=== PATIENT | male | born 1980 | race Caucasian/White ===

== ENCOUNTER 2019-03-08 10:41 | Inpatient (IN) | payer OTHER ==
[~2019-03-08] VITALS: Ht 172.7 cm; Wt 81.2 kg
[2019-03-08 10:43] VITALS: BP 142/84
--- NOTE | 2019-03-08 10:51 | NUR ---
BS IN TRIAGE 138
--- NOTE | 2019-03-08 10:55 | NUR ---
PT AMBULATED TO BED 10
--- NOTE | 2019-03-08 10:58 | NUR ---
PATIENT PRESENTS TO ED WITH C/OF LOW BLOOD SUGAR AND LEFT HAND PAIN. PT STATES HE WAS AT [facility] YESTERDAY. PT STATES HE GOT GLASS IN HIS LEFT HAND 3 DAYS AGO. LEFGT HAND +CMS, + PULSES BELOW AND ABOVE SITE. LEFT HAND, RED/SWOLLEN. PT DENIES N/V/D; AAOX4 WITH EVEN AND STEADY GAIT; LUNGS CLEAR BL; HR EVEN AND REGULAR; PATIENT STATES PAIN OF 8/10 AT THIS TIME; VSS; PATIENT POSITIONED FOR COMFORT; HOB ELEVATED; BEDRAILS UP X2; BED DOWN. PENDING ER MD EVALUATION.
[2019-03-08] MEDS ORDERED: INSU100I7 SQ (11:05)
[2019-03-08] MEDS ORDERED: LISI-420 PO (11:05)
[2019-03-08] MEDS ORDERED: AMLO5TAB PO (11:05)
[2019-03-08] MEDS ORDERED: SLIDE SUBQ (11:05)
[2019-03-08] MEDS ORDERED: NACL 0.9% 2,000 ML IV SCH (11:21)
[2019-03-08] MEDS ORDERED: PIPERACILLIN/TAZOBACTAM 3.375 GM in DEXT 5% MINI-BAG PLUS 50 ML IV ONE (11:25)
--- NOTE | 2019-03-08 11:25 | NUR ---
PIV STARTED AND LABS DRAWN, PT TOLERATED WELL.
--- NOTE | 2019-03-08 11:30 | NUR ---
XRAY AT BEDSIDE
[2019-03-08] MEDS ORDERED: PIPERACILLIN/TAZOBACTAM 3.375 GM VIAL IV ONE (11:45)
[2019-03-08 12:12] LABS: APPEARANCE,URINE CLEAR (CLEAR); BILIRUBIN,URINE NEGATIVE (NEGATIVE); BLOOD, URINE TRACE-I (NEGATIVE); COLOR,URINE YELLOW (YELLOW); LEUKOCYTE ESTERASE ,URINE NEGATIVE (NEGATIVE); NITRITE, URINE NEGATIVE (NEGATIVE); UGLUCOSE 1+ (NEGATIVE)
[2019-03-08 12:23] LABS: BASOPHILS % (AUTO) 0.3 % (0.0-2.0); EOSINOPHILS % (AUTO) 0.2 % (0.0-4.0); HEMATOCRIT 44.2 % (36-52); HEMOGLOBIN 14.9 g/dL (12.0-18.0); LYMPHOCYTES # (AUTO) 1.2 K/uL (2.0-11.5); LYMPHOCYTES % (AUTO) 8.3 % (20.5-51.1); MEAN CORPUSCULAR HEMOGLOBIN 28 pg (27-31); MEAN CORPUSCULAR HGB CONC 34 g/dL (33-37); MEAN CORPUSCULAR VOLUME 83.9 fL (80-94); MONOCYTES # (AUTO) 0.7 K/uL (0.8-1.0); MONOCYTES % (AUTO) 4.7 % (1.7-9.3); NEUTROPHILS # (AUTO) 12.2 K/uL (1.8-7.7); NEUTROPHILS % (AUTO) 86.5 % (42.2-75.2); PLATELET COUNT (AUTO) 323 K/uL (140-450); RED BLOOD CELL COUNT(AUTO) 5.27 MIL/uL (4.20-6.10); RED CELL DISTRIBUTION WIDTH 13.4 % (11.6-13.7); WHITE BLOOD COUNT (AUTO) 14.1 K/uL (4.8-10.8)
[2019-03-08 12:30] LABS: WBC,URINE 0-5 /HPF (0-5)
[2019-03-08 12:44] LABS: ANION GAP 14.7 (8-16); CARBON DIOXIDE 26.5 mmol/L (21-32); CHLORIDE 100 mmol/L (98-107); CREATININE 1.3 mg/dL (0.7-1.3); GFR ARICAN-AMERICAN 79 mL/min (>90); GLUCOSE 138 mg/dL (74-106); POTASSIUM 4.2 mmol/L (3.5-5.1); SODIUM SERUM 137 mmol/L (136-145); UREA NITROGEN, BLOOD 22 mg/dL (7-18)
[2019-03-08 12:56] LABS: ACETONE, SERUM NEGATIVE (NEGATIVE)
[2019-03-08 13:22] LABS: ALBUMIN 4.3 g/dL (3.4-5.0); ASPARTATE AMINOTRANSFERASE 26 U/L (15-37); MAGNESIUM 2.3 mg/dL (1.8-2.4); TOTAL BILIRUBIN 0.7 mg/dL (0.0-1.0)
--- NOTE | 2019-03-08 13:43 | NUR ---
Patient will be admitted to care of [facility]. Admited to Med/Surg. Will go to room 107A. Belongings list completed. Report to STEFANIA.
[2019-03-08] MEDS ORDERED: DEXTROSE 50% 50 ML SYR IVP PRN (13:55)
[2019-03-08 16:00] VITALS: BP 149/69
[2019-03-08] MEDS: HYDROcodone/APAP 5/325 MG 1 TAB TAB PO PRN ×2 (16:26→17:24)
[2019-03-08] MEDS: BLOOD GLUCOSE MONITORING 1 DEV DEV FS SCH ×2 (16:30→21:10)
--- NOTE | 2019-03-08 16:32 | NUR ---
PT STATES PAIN IS FEELING BETTER BUT STILL SORE, BUT AT A TOLERABLE LEVEL NOW AFTER TAKING PAIN MEDICATION
--- NOTE | 2019-03-08 18:30 | NUR ---
PT STATES HAND IS STILL SORE, BUT HE IS DOING BETTER AND IS IN A POSITIVE AFFECT AT THIS TIME SMILING AND CONVERSING PLEASANTLY.
[2019-03-08] MEDS: INSULIN LISPRO SLIDING SCALE 100 UNITS/ML VIAL SUBQ PRN ×2 (18:50→21:12)
--- NOTE | 2019-03-08 18:54 | NUR ---
ADMINISTERED 6 UNITS HUMOLOG, PATIENT IN PLEASANT DEMEANOR AT THIS TIME RESTING COMFORTABLY WITH NO COMPLAINTS AT THIS TIME. NO OBVIOUS SIGNS OF DISTRESS, BREATHING UNLABORED PATIENT SMILING.
--- NOTE | 2019-03-08 19:17 | NUR ---
REPORT GIVEN TO OIL TREATER NURSE AT BEDSIDE. PT IS IN CALM AND RELAXED DEMEANOR AT THIS TIME WITH NO REQUESTS FOR ANY SERVICES AT THIS TIME. DISCUSSED POC WITH PATIENT AT BEDSIDE AND PROVIDED RESOURCES ON FLU AND PNEUMOCOCCAL VACCINE AFTER DISCUSSING IT WITH PATIENT. .
--- NOTE | 2019-03-08 19:18 | NUR ---
RECEIVED BEDSIDE REPORT FROM DAY SHIFT NURSE ANTNOI RN, PT STABLE, NO DISTRESS NOTED, IV TO R AC 18G PATENT, INTACT, SL, PT ON ROOM AIR, NO SOB, PT HAS NO C/O PAIN, INITIAL ASSESSMENT DONE, ALL SAFETY PRECAUTION MET, CALL LIGHT WITHIN REACH, WILL CONTINUE TO MONITOR.
[2019-03-08] MEDS: CLINDAMYCIN PHOS 600MG/D5W PM 50 ML IV SCH (21:10)
--- NOTE | 2019-03-08 21:10 | NUR ---
DUE MEDICATION ADMINISTERED, PT TOLERATED WELL, NO DISTRESS NOTED, CALL LIGHT WITHIN REACH, WILL CONTINUE TO MONITOR.
[2019-03-08] MEDS: INSULIN LANTUS 100 UNITS/ML 10 ML VIAL SUBQ SCH (21:12)
--- NOTE | 2019-03-08 21:40 | NUR ---
PT REQUESTED SLEEPING PILLS. STATED THAT HE COULD NOT SLEEP, TALKED TO DR. PARR REGARDING PT CONCERNS, STATED TO ORDER AMBIEN 10MG, PO PRN INSOMNIA HS, WILL PUT IN ORDERS AND CONTINUE WITH ORDERS.
[2019-03-08] MEDS: ZOLPIDEM 10 MG TAB PO PRN (22:08)
--- NOTE | 2019-03-08 22:08 | NUR ---
SLEEPING MEDICATION ADMINISTERED, PT TOLERATED WELL, NO DISTRESS NOTED, CALL LIGHT WITHIN REACH, WILL CONTINUE TO MONITOR.
[2019-03-09] VITALS: BP 149/90
--- NOTE | 2019-03-09 00:29 | NUR ---
CHECKED ON PT, PT SLEEPING,V/S TAKEN, WITHIN PT BASELINE, CALL LIGHT WITHIN REACH, WILL CONTINUE TO MONITOR. ,
[2019-03-09] MEDS: HYDROcodone/APAP 5/325 MG 1 TAB TAB PO PRN ×3 (04:45→20:47)
[2019-03-09] MEDS: CLINDAMYCIN PHOS 600MG/D5W PM 50 ML IV SCH ×2 (04:46→12:42)
--- NOTE | 2019-03-09 04:47 | NUR ---
PT C/O PAIN, PAIN MEDIATION GIVEN PER DR REDD. PT TOLERATED WELL, NO DISTRESS NOTED, CALL LIGHT WITHIN REACH, WILL CONTINUE TO MONITOR.
[2019-03-09] MEDS: BLOOD GLUCOSE MONITORING 1 DEV DEV FS SCH ×4 (06:43→20:04)
--- NOTE | 2019-03-09 06:43 | NUR ---
CHECKED PT BLOOD SUGAR 75, NO INSULIN COVER NEEDED, PT TOLERATED WELL, CALL LIGHT WITHIN REACH, WILL CONTINUE TO MONITOR.
--- NOTE | 2019-03-09 07:24 | NUR ---
ENDORSED PT TO DAY SHIFT NURSE ALEXANDRU RN, PT STABLE, NO DISTRESS NOTED. CALL LIGHT WITHIN REACH.
--- NOTE | 2019-03-09 07:25 | NUR ---
RECEIVED BEDSIDE REPORT FROM NIGHTSHIFT RN. A/O X4. ROOM AIR. NO SIGNS OF DISTRESS. SKIN INTACT. LEFT HAND CELLULITIS. REDNESS AND EDEMA NOTED. BLUE PEN CHYNA AROUND SITE. IV 18 G R AC SL. CLEAN DRY AND INTACT. PT AMBULATORY, CONTINENT, URINAL AT BEDSIDE. PT ABLE TO MAKE NEEDS KNOWN. WILL CONTINUE TO MONITOR.
[2019-03-09 08:00] VITALS: BP 143/92
--- NOTE | 2019-03-09 08:27 | NUR ---
PATIENT HAS BEEN SCREENED AND CATEGORIZED MODERATE NUTRITION RISK. PATIENT WILL BE SEEN WITHIN 3-5 DAYS OF ADMISSION. 03/11/19IRA [address]
--- NOTE | 2019-03-09 09:23 | NUR ---
Follow appointment with Dr. Royce Jacques on 03/12/19 at 0900. Clinic number address: [address] [place], [place] [id number].
[2019-03-09] MEDS: LISINOPRIL 20 MG TAB PO SCH (09:26)
[2019-03-09] MEDS: amLODIPine 5 MG TAB PO SCH (09:26)
--- NOTE | 2019-03-09 09:28 | NUR ---
ADMINISTERED MEDS. PT TOLERATED WELL. EDUCATED ON SIDE EFFECTS. VERBALIZED UNDERSTANDING.
--- NOTE | 2019-03-09 09:57 | NUR ---
Appointment schedule given to pt with verbal understanding.
[2019-03-09] MEDS: INSULIN LISPRO SLIDING SCALE 100 UNITS/ML VIAL SUBQ PRN (11:29)
--- NOTE | 2019-03-09 11:34 | NUR ---
PT AWAKE LAYING IN BED. NO SIGNS OF DISTRESS. PT GIVEN INSULIN. TOLERATED WELL. BED IN LOWEST POSITION. CALL LIGHT WITHIN REACH. WILL CONTINUE TO MONITOR.
[2019-03-09] MEDS ORDERED: INSULIN LISPRO 100 UNITS/ML VIAL SUBQ SCH ×2 (12:40→18:14)
--- NOTE | 2019-03-09 12:49 | NUR ---
PER PATIENT HE IS HAVING CRANBERRY JUICE AND FRUITS WHICH ARE SWEETS THAT WILL INCREASE HIS SUGARS, HE SAID AT HOME FOR 314 BS HE GETS 15 UNITS HUMALOG, CALLED DR PARR IF IT IS OK TO GIVE 7 MORE UNITS TO GIVE A TOTAL OF 15 UNITS. EDUCATED PATIENT ON MED, GAVE ANTIBIOTICS, EDUCATED ON ANTIBIOTICS. PATIENT VERBALIZED UNDERSTANDING, TOLERATING WELL. WILL CONTINUE TO MONITOR THE PATIENT.
--- NOTE | 2019-03-09 14:00 | NUR ---
PATIENT IS SLEEPING. NO SIGNS OF DISTRESS. WILL CONTINUE TO MONITOR THE PATIENT.
[2019-03-09 16:00] VITALS: BP 139/90
[2019-03-09] MEDS ORDERED: VANCOMYCIN PER PHARMACY MC PRN (16:10)
--- NOTE | 2019-03-09 16:39 | NUR ---
PATIENT CURRENTLY IN CT TO GET CT SCAN ON L HAND WITHOUT CONTRAST PER DR ESQUIVEL ORDER
--- NOTE | 2019-03-09 17:16 | NUR ---
PATIENT BACK IN FROM CT IN STABLE CONDITION. PAGED DR PARR. PATIENTS BS IS 121 BUT HE SAID BEFORE MEALS HE NEEDS [address] WILL ASK [address] PARR IF OK TO GIVE PATIENT REQUESTS
[2019-03-09] MEDS: VANCOMYCIN 1GM/DEXT 5% PREMIX 200 ML IV SCH (18:19)
--- NOTE | 2019-03-09 18:21 | NUR ---
ADMINISTERED 10 UNITS HUMALOG. PATIENT TOLERATED WELL. PER DR FISH IT IS OK TO GIVE LONG THE PATIENT EATS. BS WAS 121 BUT PATIENT STATES BEFORE MEALS HE GETS 10 UNITS EVEN THOUGH BS 121. PATIENT EATING AT THIS TIME. ADMINISTER VANCO, EDUCATED ON SIDE EFFECTS, PATIENT VERBALIZED UNDERSTANDING
--- NOTE | 2019-03-09 19:22 | NUR ---
GAVE BEDSIDE REPORT TO PORTER BATH NURSE. PATIENT ENDORSED IN STABLE CONDITION
--- NOTE | 2019-03-09 19:23 | NUR ---
RECEIVED BEDSIDE REPORT FROM DAY SHIFT NURSE. PT IN STABLE CONDITION. IV SITE ON RAC 18G, INTACT AND PATENT. NO S/S OF SOB OR ANY DISCOMFORT NOTED. BREATHING EVENLY AND UNLABORED. SKIN INTACT, WARM AND DRY TO TOUCH. BED IN LOW POSITION. CALL LIGHT WITHIN REACH.
[2019-03-09] MEDS: INSULIN LANTUS 100 UNITS/ML 10 ML VIAL SUBQ SCH (20:11)
--- NOTE | 2019-03-09 20:11 | NUR ---
LANTUS GIVEN PER DR ORDER, PT REQUESTED USING HIS OWN NEEDLE AND HE WANTED TO ADMINISTER THE MEDICATION HIS OWN, MEDICATION GIVEN, PT SELF ADMINISTER MEDICATION, TOLERATED WELL, NO DISTRESS NOTED, CALL LIGHT WITHIN REACH, WILL CONTINUE TO MONITOR.
--- NOTE | 2019-03-09 20:47 | NUR ---
PT C/O L HAND PAIN 05/23, ADMINISTERED NORCO MD ORDERED. PT TOLERATED WELL. WILL CONTINUE TO MONITOR.
[2019-03-09] MEDS: ZOLPIDEM 10 MG TAB PO PRN (20:56)
--- NOTE | 2019-03-09 20:56 | NUR ---
ADMINISTERED AMBIEN PRN ORDERED. PT TOLERATED WELL.
[2019-03-10] VITALS: BP 115/70
--- NOTE | 2019-03-10 | NUR ---
VITAL SIGN CHECKED. BT 100.7 F NOTED. NOTIFIED AND RECEIVED ORDER OF TYLENOL.
[2019-03-10] MEDS ORDERED: ACETAMINOPHEN 325 MG TAB PO PRN (00:05)
--- NOTE | 2019-03-10 00:28 | NUR ---
ADMINISTERED TYLENOL ORDERED FOR FEVER 100.7 F. PT TOLERATED WELL. WILL CONTINUE TO MONITOR.
--- NOTE | 2019-03-10 02:00 | NUR ---
RECHECKED TEMP AFTER TYLENOL GIVEN. BT 98.4 F NOTED. WILL CONTINUE TO MONITOR.
[2019-03-10] MEDS: VANCOMYCIN 1GM/DEXT 5% PREMIX 200 ML IV SCH ×2 (05:29→17:20)
[2019-03-10] MEDS: HYDROcodone/APAP 5/325 MG 1 TAB TAB PO PRN ×4 (05:32→21:11)
--- NOTE | 2019-03-10 05:32 | NUR ---
PT C/O L HAND PAIN 05/23. GIVEN NORCO ORDERED. PT TOLERATED WELL.
[2019-03-10] MEDS: BLOOD GLUCOSE MONITORING 1 DEV DEV FS SCH ×4 (05:36→21:23)
--- NOTE | 2019-03-10 05:57 | NUR ---
BS CHECKED, 169 NOTED. ACCORDING TO SLIDING SCALE, 2 UNITS OF INSULIN SHOULD BE GIVEN. HOWEVER, PT WANTS TO GET 12 UNITS OF INSULIN. CALLED DR. FISH AND DR REDD 10 UNITS OF INSULIN PLUS BASED ON SLIDING SCALE. WILL GIVE TOTAL 12 UNITS OF INSULIN.
--- NOTE | 2019-03-10 06:25 | NUR ---
RAC 18G IV SITE LEAKING. D/C IV LINE AND STARTED NEW IV LINE 22G ON RFA. FLUSHED WELL AND GOOD BLOOD RETURNED. PATENT AND ASYMPTOMATIC. PT TOLERATED WELL.
--- NOTE | 2019-03-10 06:49 | NUR ---
PER PT REQUEST AND VERIFICATION WITH DR. FISH, 12UNIT INSULIN GIVEN FOR BLOOD SUGAR 169, PT TOLERATED WELL, NO DISTRESS NOTED, CALL LIGHT WITHIN REACH, WILL CONTINUE TO MONITOR.
[2019-03-10] MEDS ORDERED: INSULIN LISPRO 100 UNITS/ML VIAL SUBQ SCH (07:00)
--- NOTE | 2019-03-10 07:18 | NUR ---
RECEIVED BEDSIDE REPORT FROM LOG PROCESSOR OPERATOR NURSE. PT IN STABLE CONDITION. IV SITE ON R FA 22G SL, INTACT AND PATENT. NO S/S OF SOB OR ANY DISCOMFORT NOTED. BREATHING EVEN AND UNLABORED. LEFT HAND CELLULITIS, SKIN WARM AND DRY TO TOUCH. BED IN LOW POSITION. CALL LIGHT WITHIN REACH. WILL MONITOR PT CLOSELY.
--- NOTE | 2019-03-10 07:25 | NUR ---
ENDORSED PT TO DAY SHIFT NURSE NICOLAS PT IN STABLE CONDITION NO DISTRESS NOTED, CALL LIGHT WITHIN REACH.
[2019-03-10 08:00] VITALS: BP 156/88
[2019-03-10 08:03] LABS: BASOPHILS # (AUTO) 0.1 K/uL (0.00-0.22); BASOPHILS % (AUTO) 0.5 % (0.0-2.0); EOSINOPHILS # (AUTO) 0.1 K/uL (0-0.4); EOSINOPHILS % (AUTO) 0.6 % (0.0-4.0); HEMOGLOBIN 13.8 g/dL (12.0-18.0); LYMPHOCYTES # (AUTO) 2.6 K/uL (2.0-11.5); LYMPHOCYTES % (AUTO) 19.2 % (20.5-51.1); MEAN CORPUSCULAR HEMOGLOBIN 29 pg (27-31); MEAN CORPUSCULAR HGB CONC 35 g/dL (33-37); MEAN CORPUSCULAR VOLUME 82.7 fL (80-94); MONOCYTES # (AUTO) 1.2 K/uL (0.8-1.0); MONOCYTES % (AUTO) 8.8 % (1.7-9.3); NEUTROPHILS # (AUTO) 9.6 K/uL (1.8-7.7); NEUTROPHILS % (AUTO) 70.9 % (42.2-75.2); PLATELET COUNT (AUTO) 303 K/uL (140-450); RED BLOOD CELL COUNT(AUTO) 4.84 MIL/uL (4.20-6.10); RED CELL DISTRIBUTION WIDTH 13.4 % (11.6-13.7); WHITE BLOOD COUNT (AUTO) 13.6 K/uL (4.8-10.8)
[2019-03-10 08:23] LABS: ANION GAP 15.3 (8-16); CARBON DIOXIDE 24.3 mmol/L (21-32); CREATININE 1.2 mg/dL (0.7-1.3); POTASSIUM 4.6 mmol/L (3.5-5.1)
[2019-03-10] MEDS: amLODIPine 5 MG TAB PO SCH (08:57)
[2019-03-10] MEDS: LISINOPRIL 20 MG TAB PO SCH (08:58)
--- NOTE | 2019-03-10 09:00 | NUR ---
ADMINISTERED MORNING MEDS TO PT. PT TOLERATED THEM WELL. PT ASKING FOR PAIN MEDICATION BUT MED IS NOT DUE UNTIL 0932. WILL GIVE PAIN MEDICATION WHEN IT IS DUE. ALL OTHER NEEDS MET. NO DISTRESS NOTED. BED IN LOW POSITION, CALL LIGHT WITHIN REACH.
[2019-03-10] MEDS ORDERED: INSULIN REGULAR, HUMAN 100 UNIT/ML VIAL SUBQ SCH (11:30)
--- NOTE | 2019-03-10 11:47 | NUR ---
PT SLEEPING IN BED. NO SIGNS OF DISTRESS AT THIS TIME. WILL CONTINUE TO ROUND FREQUENTLY. BED IN LOW POSITION, CALL LIGHT WITHIN REACH.
[2019-03-10] MEDS: INSULIN LISPRO 100 UNITS/ML VIAL SUBQ SCH ×2 (13:21→17:42)
--- NOTE | 2019-03-10 14:06 | NUR ---
PT RESTING IN BED WATCHING TV. PT VERBALIZED PAIN BUT MEDICATION IS NOT DUE YET. EDUCATED PT AND PT VERBALIZED UNDERSTANDING OF MEDICATION FREQUENCY. ALL OTHER NEEDS MET. WILL CONTINUE TO ROUND FREQUENTLY.
[2019-03-10 16:00] VITALS: BP 127/69
--- NOTE | 2019-03-10 16:15 | NUR ---
PT REQUESTED PAIN MEDICATION. NORCO WAS GIVEN. WILL REASSESS FOR MED EFFECTIVENESS.
--- NOTE | 2019-03-10 16:29 | NUR ---
PT BS POC IS 189/ PT REQUESTING SCHEDULED 10UNITS OF INSULIN PLUS SLIDING SCALE COVERAGE AT THIS TIME. I TOLD HIM HE CAN NOT HAVE IT UNTIL HIS MEAL TRAY IS PRESENT DUE TO HIM RECEIVING HIS LAST 10 UNITS OF INSULIN AT 1321. PT VERBALIZED UNDERSTANDING OF TEACHING.
[2019-03-10] MEDS: INSULIN LISPRO SLIDING SCALE 100 UNITS/ML VIAL SUBQ PRN (17:43)
--- NOTE | 2019-03-10 17:57 | NUR ---
PT EATING DINNER AT BEDSIDE. INSULIN GIVEN PER MD ORDERS. NO OTHER NEEDS AT THIS TIME. WILL CONTINUE TO MONITOR CLOSELY.
--- NOTE | 2019-03-10 19:28 | NUR ---
ENDORSED PT TO RESTAURANT DELIVERY DRIVER FOR CONTINUITY OF CARE. PT IN STABLE CONDITION AT THIS TIME.
--- NOTE | 2019-03-10 19:30 | NUR ---
Received endorsement from AM shift RN; patient is A/Ox4, able to make needs known, ambulatory. Patient is watching TV. Introduced self, updated board. No SOB or distress noted, on room air. IV site on right forearm, 22 gauge, saline locked. Skin intact. Bed in the lowest position, call light within reach. Initial assessment done. Will continue to monitor.
--- NOTE | 2019-03-10 21:05 | NUR ---
Due meds given, tolerated well. No distress noted.
[2019-03-10] MEDS: ZOLPIDEM 10 MG TAB PO PRN (21:11)
[2019-03-10] MEDS: INSULIN LANTUS 100 UNITS/ML 10 ML VIAL SUBQ SCH (21:23)
--- NOTE | 2019-03-10 23:55 | NUR ---
Vitals taken, patient asleep on right lateral side. Visible chest rise and fall noted.
[2019-03-11] VITALS: BP 135/84
--- NOTE | 2019-03-11 01:55 | NUR ---
Rounds done, patient sleeping. No distress noted.
--- NOTE | 2019-03-11 04:00 | NUR ---
Frequent checks made, patient asleep, eyes closed, visible chest rise and fall noted.
--- NOTE | 2019-03-11 06:05 | NUR ---
Vanco trough still pending; will hang Vanco once available.
[2019-03-11] MEDS: BLOOD GLUCOSE MONITORING 1 DEV DEV FS SCH ×6 (06:30→22:45)
[2019-03-11] MEDS: INSULIN LISPRO 100 UNITS/ML VIAL SUBQ SCH ×3 (06:33→16:30)
[2019-03-11] MEDS: INSULIN LISPRO SLIDING SCALE 100 UNITS/ML VIAL SUBQ PRN ×2 (06:34→12:10)
[2019-03-11] MEDS: HYDROcodone/APAP 5/325 MG 1 TAB TAB PO PRN ×4 (06:37→19:29)
--- NOTE | 2019-03-11 07:15 | NUR ---
Endorsed patient to AM shift RN for continuity of care; patient in stable condition.
--- NOTE | 2019-03-11 07:20 | NUR ---
RECEIVED HAND OFF REPORT FROM IT DISASTER RECOVERY MANAGER NURSE PT IS STABLE AND IN NO APPARENT DISTRESS. WILL CONTINUE WITH CURRENT PLAN OF CARE AND MONITOR PT.
[2019-03-11 07:57] LABS: HEMOGLOBIN 13.8 g/dL (12.0-18.0); MEAN CORPUSCULAR HEMOGLOBIN 29 pg (27-31); MEAN CORPUSCULAR HGB CONC 35 g/dL (33-37); MEAN CORPUSCULAR VOLUME 83.3 fL (80-94); PLATELET COUNT (AUTO) 321 K/uL (140-450); RED CELL DISTRIBUTION WIDTH 13.1 % (11.6-13.7)
[2019-03-11 08:00] VITALS: BP 115/80
--- NOTE | 2019-03-11 08:00 | NUR ---
JUAN FRANCISCO KAY CAME BACK LESS THAN 20 HUNG PT VANCOMYCIN.
[2019-03-11 08:13] LABS: ANION GAP 14.1 (8-16); CARBON DIOXIDE 24.2 mmol/L (21-32); CREATININE 1.2 mg/dL (0.7-1.3); POTASSIUM 4.3 mmol/L (3.5-5.1)
[2019-03-11 09:02] LABS: BASOPHILS % (MANUAL) 0 % (0-2); EOSINOPHILS % (MANUAL) 1 % (0-4); LYMPHOCYTES % (MANUAL) 12 % (20-46); MONOCYTES % (MANUAL) 7 % (5-12)
[2019-03-11] MEDS: VANCOMYCIN 1GM/DEXT 5% PREMIX 200 ML IV SCH (09:20)
[2019-03-11] MEDS: LISINOPRIL 20 MG TAB PO SCH (09:26)
[2019-03-11] MEDS: amLODIPine 5 MG TAB PO SCH (09:27)
--- NOTE | 2019-03-11 10:05 | NUR ---
FREQUENT ROUNDING PT IS STABLE AND IN NO APPARENT DISTRESS. ALL SAFETY MEASURES ARE IN PLACE. WILL CONTINUE WITH CURRENT PLAN OF CARE.
--- NOTE | 2019-03-11 11:45 | NUR ---
14 UNITS OF HUMALOG GIVEN. 10UNITS STANDING ORDER. 4 UNITS FROM SLIDING SCALE FINGERSTICK GLUCOSE WAS 248. WILL CONTINUE TO ASSESS PATIENT THROUGHOUT THE DAY
--- NOTE | 2019-03-11 13:00 | NUR ---
FREQUENT ROUNDING PT IS STABLE AND IN NO APPARENT DISTRESS, PT IS IN RESTING IN BED. WILL CONTINUE TO MONITOR, ALL SAFETY MEASURES ARE IN PLACE.
--- NOTE | 2019-03-11 14:25 | NUR ---
FREQUENT ROUNDING PT IS STABLE AND IN NO APPARENT DISTRESS. ALL SAFETY MEASURES ARE IN PLACE. WILL CONTINUE TO MONITOR.
[2019-03-11 16:00] VITALS: BP 142/85
--- NOTE | 2019-03-11 16:30 | NUR ---
DID NOT ADMINISTER HUMALOG 10UNITS STANDING ORDER BECAUSE PT IS PLACED NPO. PT STATED THAT SINCE HE IS PLACED NPO FOR I&D HOPEFULLY TONIGHT OR TOMORROW HE WOULD ONLY LIKE HIS SLIDING SCALE. FINGERSTICK GLUCOSE WAS 148 NO COVERAGE NEEDED FOR SLIDING SCALE.
[2019-03-11] MEDS: VANCOMYCIN 1,500 MG in NACL 0.9% 500 ML IV SCH (18:38)
--- NOTE | 2019-03-11 19:30 | NUR ---
HAND OFF REPORT GIVEN TO BODY SHOP MECHANIC NURSE, PT IS COMPLAINING OF PAIN. PT IS STABLE AND IN NO APPARENT DISTRESS OTHER THAN PAIN. ALL SAFETY MEASURES ARE IN PLACE.
--- NOTE | 2019-03-11 19:35 | NUR ---
Received endorsement from AM shift RN; patient is A/Ox4, able to make needs known, ambulatory. Patient is watching TV. Introduced self, updated board. No SOB or distress noted, on room air. IV site on right forearm, 22 gauge, running IVF at 100mL/hr. Skin intact. Patient verbalized 8/10 left hand pain, will medicate as ordered and per pain scale. Bed in the lowest position, call light within reach. Initial assessment done. Will continue to monitor.
--- NOTE | 2019-03-11 19:50 | NUR ---
Patient was transported to OR for surgery. Consent signed.
[2019-03-11] MEDS ORDERED: SEVOFLURANE 250 ML BTL INH ONE (20:25)
[2019-03-11] MEDS ORDERED: PROPOFOL 200 MG/20 ML VIAL IV ONE (20:25)
[2019-03-11] MEDS ORDERED: KETOROLAC 30 MG/ML VIAL ONE (20:25)
[2019-03-11] MEDS ORDERED: DEXAMETHASONE 4 MG/ML VIAL ONE (20:25)
[2019-03-11] MEDS ORDERED: ONDANSETRON 4 MG/2 ML VIAL ONE (20:25)
[2019-03-11] MEDS ORDERED: LIDOCAINE 1% 500 MG/50 ML VIAL ONE (20:33)
[2019-03-11] MEDS ORDERED: MIDAZOLAM 2 MG/2 ML VIAL ONE (20:34)
[2019-03-11] MEDS ORDERED: BUPIVACAINE-MPF 0.25% 30 ML VIAL INJ ONE (20:34)
[2019-03-11] MEDS ORDERED: fentaNYL 0.05 MG/ML VIAL ONE (20:35)
[2019-03-11] MEDS ORDERED: MEPERIDINE 50 MG/ML SYR ONE (20:35)
[2019-03-11] MEDS: INSULIN LANTUS 100 UNITS/ML 10 ML VIAL SUBQ SCH ×2 (21:00→22:55)
[2019-03-11] MEDS ORDERED: MEPERIDINE 25 MG/ML SYR IVP PRN (21:05)
[2019-03-11] MEDS ORDERED: diphenhydrAMINE 50 MG/ML VIAL IVP PRN (21:05)
[2019-03-11] MEDS ORDERED: ONDANSETRON 4 MG/2 ML VIAL IVP PRN (21:05)
[2019-03-11] MEDS ORDERED: HYDROmorphone 1 MG/ML AMP IVP PRN (21:05)
--- NOTE | 2019-03-11 22:05 | NUR ---
Patient arrived in unit from OR, accompanied by GRAIN ELEVATOR SUPERINTENDENT. Vitals taken, no distress noted.
[2019-03-11] MEDS: ZOLPIDEM 10 MG TAB PO PRN (23:28)
[2019-03-11] MEDS ORDERED: INSULIN LISPRO SLIDING SCALE 100 UNITS/ML VIAL SUBQ SCH (23:30)
[2019-03-11] MEDS: NACL 0.9% 1,000 ML IV SCH (23:33)
--- NOTE | 2019-03-11 23:40 | NUR ---
Patient requested to have additional Humalog 12 units to go with Lantus insulin 20 units. Called to request for additional units. Dr. Ramachandran approved of additional Humalog 12 units; orders carried out. Will continue to monitor.
[2019-03-12] VITALS: BP 142/81
--- NOTE | 2019-03-12 00:20 | NUR ---
Vitals taken, patient is using cellphone, no SOB or distress noted. Will continue to monitor.
--- NOTE | 2019-03-12 02:35 | NUR ---
Checks made; patient asleep, visible chest rise and fall noted.
[2019-03-12] MEDS: VANCOMYCIN 1,500 MG in NACL 0.9% 500 ML IV SCH ×2 (05:03→17:08)
[2019-03-12] MEDS: NACL 0.9% 1,000 ML IV SCH ×4 (05:03→23:49)
--- NOTE | 2019-03-12 05:05 | NUR ---
Due meds given, tolerated well. No distress noted.
[2019-03-12] MEDS: BLOOD GLUCOSE MONITORING 1 DEV DEV FS SCH ×4 (06:39→19:57)
[2019-03-12] MEDS: INSULIN LISPRO 100 UNITS/ML VIAL SUBQ SCH ×3 (06:40→17:06)
[2019-03-12] MEDS: INSULIN LISPRO SLIDING SCALE 100 UNITS/ML VIAL SUBQ PRN ×3 (06:41→17:07)
[2019-03-12 07:09] LABS: BASOPHILS % (AUTO) 0.2 % (0.0-2.0); HEMOGLOBIN 13.3 g/dL (12.0-18.0); LYMPHOCYTES # (AUTO) 0.9 K/uL (2.0-11.5); LYMPHOCYTES % (AUTO) 5.3 % (20.5-51.1); MEAN CORPUSCULAR HEMOGLOBIN 28 pg (27-31); MEAN CORPUSCULAR HGB CONC 34 g/dL (33-37); MEAN CORPUSCULAR VOLUME 83.5 fL (80-94); MONOCYTES # (AUTO) 0.6 K/uL (0.8-1.0); MONOCYTES % (AUTO) 3.6 % (1.7-9.3); NEUTROPHILS # (AUTO) 16.2 K/uL (1.8-7.7); NEUTROPHILS % (AUTO) 90.9 % (42.2-75.2); PLATELET COUNT (AUTO) 315 K/uL (140-450); RED BLOOD CELL COUNT(AUTO) 4.67 MIL/uL (4.20-6.10); RED CELL DISTRIBUTION WIDTH 12.8 % (11.6-13.7); WHITE BLOOD COUNT (AUTO) 17.9 K/uL (4.8-10.8)
--- NOTE | 2019-03-12 07:20 | NUR ---
Endorsed patient to AM shift RN for continuity of care; patient in stable condition.
--- NOTE | 2019-03-12 07:21 | NUR ---
RECEIVED REPORT FROM PM NURSE TA BEDSIDE. PT UP AND SITTING IN HIS BED. HAS HIS LFT HAND I&D DONE YESTERDAY. S/P I&D OF HIS LEFT HAND. PT STATES FEEING BETTER AT THIS TIME. AOX4. IS DUE FOR WOUND CONSULT TODAY. INFORMED PT THAT WILL BE SEEN BY WOUND CARE NURSE TODAY AND WOUND PACKING WILL BE DONE. VERBALIZED UNDERSTANDING. PT HAS IV ACCESS 22 G ON RT HAND . IVF INFUSING WELL. CALL LIGHT WITHIN P[T REACH. WILL CONTINUE TO MONITOR PT.
[2019-03-12 08:00] VITALS: BP 138/86
[2019-03-12] MEDS: LISINOPRIL 20 MG TAB PO SCH (08:59)
[2019-03-12] MEDS: amLODIPine 5 MG TAB PO SCH (08:59)
--- NOTE | 2019-03-12 09:01 | NUR ---
ADMINISTERED MEDS TO PT ORDERED. TOLERATED WELL. NO SIGN OF DISTRESS NOTED. ALL SAFETY MEASURE IN PLACE. WILL CONTINUE TO MONITOR PT.
--- NOTE | 2019-03-12 09:05 | NUR ---
CALLED [facility] [phone] SPOKE WITH TRAVIS REGARDING THE TRANSFER FOR HIGHER LEVEL OF CARE , PER TRAVIS TO FAX TO [facility] . CALLED [facility] BED CONTROL [phone] SPOKE WITH GERARD CAROLINACOLD ROLLING SUPERVISOR FAXED ALL THE INFORMATION TO HER AND PER GERARD SHE WILL CALL WHEN BED AVAILABLE
--- NOTE | 2019-03-12 10:30 | NUR ---
CALLED [facility] [phone] SPOKE WITH GERARD AND REQUESTING A MED SURGE BED FOR HIGHER LEVEL OF CARE , PER GERARD SHE REQUESTED THE TRANSFER BACK AGREEMENT PAPER WORK TO BE FAXED TO HER. TRANSFER BACK AGREEMENT SIGNED BY GOYO HUMPHREYS FAXED ALL PAPER WORK TO [facility] [phone] AND WILL F/U WITH BED COORDINATOR
[2019-03-12] MEDS: HYDROcodone/APAP 5/325 MG 1 TAB TAB PO PRN ×2 (11:00→18:20)
--- NOTE | 2019-03-12 11:01 | NUR ---
PT MEDICATED WITH PAIN MEDS, WILL CHANGE THE DRESSING ON HIS LFT HAND. WILL CONTINUE TO MONITOR PT.
[2019-03-12] MEDS ORDERED: HYDROmorphone 1 MG/ML AMP IVP PRN (11:30)
--- NOTE | 2019-03-12 11:30 | NUR ---
ADMINISTERED DILAUDID PAIN PER MD OH ORDER. MD AT THE BEDSIDE TO PACK THE WOUND, PT NOT TOLERATING WELL. MD PACKED THE WOUND SLIGHTLY, ASKED TO WRAP THE DRESSING AROUND THE WOUND. KERLIX APPLIED AROUND THE PTS WRIST. BS 265 NOTED. WILL MEDICATE PT PER SLIDING SCALE. WILL CONTINUE TO MONITOR PT.
--- NOTE | 2019-03-12 12:45 | NUR ---
CALLED [facility] ,[phone] SPOKE WITH GELACIO REGARDING TRANSFER TO HIGHER LEVEL OF CARE ,PER GELACIO THE PENDING AUTH IS [id number] AND TRANSFERRED ME TO THE ASSIGN CM IS [place]YATT AND I LEFT A MESSAGE AND WAITING FOR THE CM TO CALL .
--- NOTE | 2019-03-12 14:00 | NUR ---
CALLED [facility] [phone] SPOKE WITH JASWINDER SHORT REGARDING THE BED AVAILABILITY, PER JASWINDER WILL CALL WHEN BED AVAILABLE.
--- NOTE | 2019-03-12 14:00 | NUR ---
CHECKED ON THE PT. SITTING ON HIS BED, WATCHING TV. NO SIGN OF DISTRESS NOTED. ALL SAFETY MEASURE IN PLACE. WILL CONTINUE TO MONITOR PT.
--- NOTE | 2019-03-12 14:30 | NUR ---
CALLED [facility] [phone] SPOKE WITH GERARD CAROLINAMANAGER ROOM PER GERARD WAITING FOR ACCEPTING
--- NOTE | 2019-03-12 15:18 | NUR ---
PROVIDED EDUCATION ON CARBOHYDRATE COUNTING AND DETERMINING [id number] RATION. PT ACCEPTED EDUCATION. HANDOUTS WERE LEFT WITH PATIENT. IRA [address]
[2019-03-12 16:00] VITALS: BP 145/86
--- NOTE | 2019-03-12 16:36 | NUR ---
CALLED [facility] SPOKE WITH JASWINDER CAROLINASIPHONER , STILL LOOKING THE HAND SPECIALIST , IF SHE FINDS A DR TO ACCEPT PT PROVIDE HER THE FLOOR NUMBER [phone] AND NOTIFIED DEAN NAVARRETE . CALLED [facility] TO F/U WITH REQUESTING BED, SPOKE WITH GERARD CAROLINA SUP STATED NO ACCEPTING DR AT THIS TIME IF SHE HAS ONE PROVIDE HER THE UNIT NUMBER [phone] , NOTIFIED CHARGE NURSE DEAN .
--- NOTE | 2019-03-12 17:31 | NUR ---
ADMINISTERED MEDS TO PT ORDERED. TOLERATED WELL. BS 160. ADMINISTERED INSULIN PER ORDER. VANCOMYCIN IVPB INFUSING WELL. NO SIGN OF DISTRESS NOTED. ALL SAFETY MEASURE IN PLACE. WILL CONTINUE TO MONITOR PT.
--- NOTE | 2019-03-12 17:58 | NUR ---
PT RAISED BED AT HIGHER LEVEL. ASKED PT TO LOWER THE BED FOR HIS SAFETY TO AVOID THE FALL RISK. PT STATES IS AWARE OF THAT , WANTS BED LITTLE UP IT IS COMFORTABLE FOR HIM. PT MADE AWARE OF THE FALL RISK, IS AOX4. WILL CONTINUE TO MONITOR PT.
--- NOTE | 2019-03-12 19:15 | NUR ---
ENDORSED PT TO PM NURSE AT BEDSIDE. PT STABLE AT THIS TIME.
--- NOTE | 2019-03-12 19:16 | NUR ---
RECEIVED REPORT FROM DAY SHIFT NURSE IDA-RN AT BEDSIDE. PT RESTING IN BED, AOX4, ON ROOM AIR WITH RIGHT AC #22G RUNNING NS @120ML/HR. DISCUSSED PLAN OF CARE AND PT VERBALIZED UNDERSTANDING. NO S/S OF RESPIRATORY DISTRESS OR DISCOMFORT NOTED AT THIS TIME. S/P I&D ON LEFT HAND BY DR. HAYWOOD ON 03/11- BANDAGED IN DRESSINGS. BED IN LOWEST POSITION, BED BREAKS ON, BOTH SIDE RAILS UP. BEDSIDE TABLE AND CALL LIGHT ARE WITHIN REACH. WILL CONTINUE TO MONITOR.
[2019-03-12] MEDS: INSULIN LANTUS 100 UNITS/ML 10 ML VIAL SUBQ SCH (19:58)
[2019-03-12 20:00] VITALS: BP 146/90
--- NOTE | 2019-03-12 20:00 | NUR ---
VITAL SIGNS TAKEN AND TOLERATED WELL. BLOOD GLUCOSE 34- WILL ADMINISTER DEXTROSE 50% ABBOJECT- CHARGE NURSE KAYDEN-KARAN AWARE. NO S/S OF RESPIRATORY DISTRESS OR DISCOMFORT NOTED AT THIS TIME. WILL CONTINUE TO MONITOR.
--- NOTE | 2019-03-12 20:01 | NUR ---
DEXTROSE 50% ABBOJECT GIVEN AND TOLERATED WELL. WILL RE-CHECK BLOOD GLUCOSE IN ONE HOUR. NO S/S OF RESPIRATORY DISTRESS OR DISCOMFORT NOTED AT THIS TIME. WILL CONTINUE TO MONITOR.
--- NOTE | 2019-03-12 20:30 | NUR ---
BLOOD GLUCOSE 65- PT REFUSING ANOTHER DOSE OF DEXTROSE 50% ABBOJECT. CHARGE NURSE KAYDEN- KARAN AWARE. PT REQUESTING INSTEAD JUICE, CRACKERS, ETC. GIVEN REQUESTED. PT TOLERATED WELL. EDUCATED PT ON LANTUS- AND WAS HELD DUE TO LOW BLOOD GLUCOSE.
[2019-03-12] MEDS: ZOLPIDEM 10 MG TAB PO PRN (21:41)
--- NOTE | 2019-03-12 22:00 | NUR ---
DR. LEUNG IN TO SEE PT. PT RESTING IN BED. NO S/S OF RESPIRATORY DISTRESS OR DISCOMFORT NOTED AT THIS TIME. WILL CONTINUE TO MONITOR.
[2019-03-13] VITALS: BP 135/84
--- NOTE | 2019-03-13 | NUR ---
VITAL SIGNS TAKEN AND TOLERATED WELL. NO S/S OF RESPIRATORY DISTRESS OR DISCOMFORT NOTED AT THIS TIME. WILL CONTINUE TO MONITOR.
--- NOTE | 2019-03-13 02:00 | NUR ---
PT CONTINUES TO SLEEP IN BED. NO S/S OF RESPIRATORY DISTRESS OR DISCOMFORT NOTED AT THIS TIME. WILL CONTINUE TO MONITOR.
[2019-03-13] MEDS: HYDROcodone/APAP 5/325 MG 1 TAB TAB PO PRN ×5 (03:33→22:36)
--- NOTE | 2019-03-13 03:33 | NUR ---
PT C/O PAIN 06/23- MEDICATED WITH NORCO AND TOLERATED WELL. NO S/S OF RESPIRATORY DISTRESS OR DISCOMFORT NOTED AT THIS TIME. WILL CONTINUE TO MONITOR.
[2019-03-13] MEDS: BLOOD GLUCOSE MONITORING 1 DEV DEV FS SCH ×4 (05:38→20:30)
[2019-03-13] MEDS: INSULIN LISPRO SLIDING SCALE 100 UNITS/ML VIAL SUBQ PRN ×3 (05:44→17:29)
--- NOTE | 2019-03-13 05:44 | NUR ---
BLOOD GLUCOSE 400- INSULIN COVERAGE GIVEN AND TOLERATED WELL. NO S/S OF RESPIRATORY DISTRESS OR DISCOMFORT NOTED AT THIS TIME. WILL CONTINUE TO MONITOR.
[2019-03-13 05:58] LABS: ANION GAP 13.3 (8-16); CARBON DIOXIDE 23.3 mmol/L (21-32); CREATININE 1.1 mg/dL (0.7-1.3); POTASSIUM 4.6 mmol/L (3.5-5.1)
[2019-03-13 06:03] LABS: BASOPHILS # (AUTO) 0.1 K/uL (0.00-0.22); BASOPHILS % (AUTO) 0.9 % (0.0-2.0); EOSINOPHILS # (AUTO) 0.2 K/uL (0-0.4); EOSINOPHILS % (AUTO) 1.7 % (0.0-4.0); HEMATOCRIT 36.5 % (36-52); HEMOGLOBIN 12.4 g/dL (12.0-18.0); MEAN CORPUSCULAR HEMOGLOBIN 28 pg (27-31); MEAN CORPUSCULAR HGB CONC 34 g/dL (33-37); MEAN CORPUSCULAR VOLUME 83.1 fL (80-94); MONOCYTES # (AUTO) 0.8 K/uL (0.8-1.0); MONOCYTES % (AUTO) 7.2 % (1.7-9.3); NEUTROPHILS # (AUTO) 8.1 K/uL (1.8-7.7); NEUTROPHILS % (AUTO) 72.2 % (42.2-75.2); PLATELET COUNT (AUTO) 291 K/uL (140-450); RED BLOOD CELL COUNT(AUTO) 4.38 MIL/uL (4.20-6.10); RED CELL DISTRIBUTION WIDTH 13.1 % (11.6-13.7); WHITE BLOOD COUNT (AUTO) 11.2 K/uL (4.8-10.8)
[2019-03-13] MEDS: VANCOMYCIN 1,500 MG in NACL 0.9% 500 ML IV SCH ×2 (06:35→17:22)
[2019-03-13] MEDS: INSULIN LISPRO 100 UNITS/ML VIAL SUBQ SCH ×3 (06:47→17:31)
--- NOTE | 2019-03-13 06:47 | NUR ---
BLOOD GLUCOSE 354- SCHEDULED 10 UNITS OF HUMALOG GIVEN AND TOLERATED WELL. NO S/S OF RESPIRATORY DISTRESS OR DISCOMFORT NOTED AT THIS TIME. WILL CONTINUE TO MONITOR.
--- NOTE | 2019-03-13 07:32 | NUR ---
REPORT RECEIVED FROM NURSE YOAN, PT AWAKE A/O APPROPRIATE AND ABLE TO COMMUNICATE NEEDS, DRESSING TO L HAND CLEAN DRY AND INTACT. OT STATES HE HAS INTERMITTENT PAIN BUT IT IS TOLERABLE AT THIS TIME. CALL LIGHT, PERSONAL ITEMS WITHIN REACH, SAFETY MEASURES IN PLACE, NO S/S OF ACUTE DISTRESS AT THIS TIME, WILL CONTINUE TO MONITOR
--- NOTE | 2019-03-13 07:32 | NUR ---
ENDORSED PT CARE TO DAY SHIFT NURSE LINDA FOR CONTINUITY OF CARE.
[2019-03-13 08:00] VITALS: BP 132/89
[2019-03-13] MEDS: amLODIPine 5 MG TAB PO SCH (08:14)
[2019-03-13] MEDS: LISINOPRIL 20 MG TAB PO SCH (08:15)
--- NOTE | 2019-03-13 09:00 | NUR ---
CALLED [facility] SPOKE WITH JASWINDER FOR F/U BED AVAILABILITY, AND PANAMA SPOKE WITH GERARD , BOTH HOSPITALS THERE IS NO BED AT THIS TIME WILL CALL WHEN THEY HAVE A BED
--- NOTE | 2019-03-13 09:30 | NUR ---
PT A/O APPROPRIATE AND ABLE TO COMMUNICATE NEEDS.CALL LIGHT AND PERSONAL ITEMS WITHIN REACH, SAFETY MEASURES IN PLACE, NO S/S OF ACUTE DISTRESS AT THIS TIME, WILL CONTINUE TO MONITOR
--- NOTE | 2019-03-13 10:45 | NUR ---
JASWINDER SHORT FROM [facility] CALLED AND STATED THEIR HAND SPECIALIST DR THIEN GOVEA IS ON VACATION AND UNABLE TO ACCEPT THE PT AT THIS TIME.
--- NOTE | 2019-03-13 11:02 | NUR ---
I RECEIVED A CALL FROM [facility] ,REQUESTING ATTENDING'S CELL PHONE TO MAKE DR TO 'S REPORT , NOTIFIED DR CHIANG AND PROVIDE HIS CELL PHONE TO [facility]
--- NOTE | 2019-03-13 11:15 | NUR ---
DR CHIANG IN HOUSE NOTIFIED OF PT FINGERSTICK GLUCOSE, ORDERS RECIEVED TO HOLD INSULIN SCHEDULED AND D50, GIVE JUICE AND TO HAVE LAB DRAW FOR VERIFICATION. PT ASYMPTOMATIC, PROVIDED JUICE PER MD, CALL LIGHT, PERSONAL ITEMS WITHIN REACH, SAFETY MEASURES IN PLACE, NO S/S OF ACUTE DISTRESS AT THIS TIME, WILL CONTINUE TO MONITOR
--- NOTE | 2019-03-13 11:50 | NUR ---
PT REMAINS A/O APPROPRIATE AND ABLE TO COMMUNICATE NEEDS. PT REFUSED LAB DRAW, PER PT HE PERFORMED FINGERSTICK WITH PERSONAL EQUIPMENT AND CURRENT LEVEL IS 96, CHARGE NURSE NOTIFIED. ALL LIGHT, PERSONAL ITEMS WITHIN REACH, SAFETY MEASURES IN PLACE, NO S/S OF ACUTE DISTRESS AT THIS TIME, WILL CONTINUE TO MONITOR
--- NOTE | 2019-03-13 11:54 | NUR ---
PT REMAINS A/O APPROPRIATE AND ABLE TO COMMUNICATE NEEDS. FINGERSTICK PERFORMED FOR VERIFICATION CURRENT LEVEL IS 131, CHARGE NURSE NOTIFIED. CALL LIGHT, PERSONAL ITEMS WITHIN REACH, SAFETY MEASURES IN PLACE, NO S/S OF ACUTE DISTRESS AT THIS TIME, WILL CONTINUE TO MONITOR
[2019-03-13] MEDS: NACL 0.9% 1,000 ML IV SCH ×2 (12:56→22:23)
--- NOTE | 2019-03-13 13:19 | NUR ---
I RECEIVED A CALL FROM [facility] REVIEWED ALL THE PAPER WORK , NEEDED THE DR'S CELL PHONE FOR DIRECT CONTACT TO MD TO MD PROVIDE THE # AND SHE WILL CALL BACK SOON BED AVAILABLE
--- NOTE | 2019-03-13 13:57 | NUR ---
03/13/19 RD INITIAL ASSESSMENT COMPLETED PLEASE REFER TO NUTRITION ASSESSMENT UNDER CARE ACTIVITY FOR ESTIMATED NUTRITIONAL NEEDS. 1. RECOMMEND CCHO 60 DIET TOLERATED 2. CARBOHYDRATE COUNTING AND INSULIN RATIOS EDUCATION WERE PROVIDED TO PT 3. RD TO FOLLOW-UP 5-7 DAYS, LOW RISK IRA DURON RD
--- NOTE | 2019-03-13 15:07 | NUR ---
PT SELF ASSESSED GLUCOSE AT BEDSIDE, REQUESTED INSULIN, LEVEL VERIFIED WITH FIGERSTICK GLUCOSE BY NURSING, ADMINISTERED INSULIN PER SLIDING SCALE. PT ASYMPTOMATIC. REMAINS A/O AND APPROPRIATE, NO S/S OF ACUTE DISTRESS NOTED AT THIS TIME. CALL LIGHT AND PERSONAL ITEMS WITHIN REACH, SAFETY MEASURES IN PLACE, WILL CONTINUE TO MONITOR
[2019-03-13 16:00] VITALS: BP 166/87
--- NOTE | 2019-03-13 16:00 | NUR ---
CALLED [facility] SPOKE WITH ETIENNE , SHE IS LEAVING NOW BUT SHE WILL PASS IT ON THE THE HAND [employer], AND THEY WILL CALL THE FLOOR WHEN BED AVAILABLE.
--- NOTE | 2019-03-13 17:31 | NUR ---
PT REFUSED S/S COVERAGE, ACCEPTED SCHEDULED INSULIN. REMAINS A/O APPRPRIATE AND ABLE TO COMMUNICATE NEEDS. CALL LIGHT, PERSONAL ITEMS WITHIN REACH, SAFETY MEASURES IN PLACE, NO S/S OF ACUTE DISTRESS AT THIS TIME, WILL CONTINUE TO MONITOR
--- NOTE | 2019-03-13 19:24 | NUR ---
REPORT ENDORSED TO ONCOMING NURSE YOAN. PT REMAINS A/O APPROPRIATE AND ABLE TO COMMUNICATE NEEDS. CALL LIGHT, PERSONAL ITEMS WITHIN REACH, SAFETY MEASURES IN PLACE, NO S/S OF ACUTE DISTRESS AT THIS TIME.
--- NOTE | 2019-03-13 19:25 | NUR ---
RECEIVED REPORT FROM DAY SHIFT NURSE CHRISTOPHER-RN AT BEDSIDE. PT RESTING IN BED, AOX4, ON ROOM AIR WITH RIGHT AC #22G RUNNING NS @120ML/HR. DISCUSSED PLAN OF CARE AND PT VERBALIZED UNDERSTANDING. NO S/S OF RESPIRATORY DISTRESS OR DISCOMFORT NOTED AT THIS TIME. S/P I&D ON LEFT HAND BY DR. HAYWOOD ON 03/11- BANDAGED IN DRESSINGS. BED IN LOWEST POSITION, BED BREAKS ON, BOTH SIDE RAILS UP. BEDSIDE TABLE AND CALL LIGHT ARE WITHIN REACH. WILL CONTINUE TO MONITOR.
[2019-03-13 20:00] VITALS: BP 190/99
--- NOTE | 2019-03-13 20:00 | NUR ---
VITAL SIGNS TAKEN AND TOLERATED WELL. BLOOD GLUCOSE 94- NO INSULIN COVERAGE GIVEN. NO S/S OF RESPIRATORY DISTRESS OR DISCOMFORT NOTED AT THIS TIME. WILL CONTINUE TO MONITOR.
[2019-03-13] MEDS: cloNIDine 0.1 MG TAB PO PRN (20:30)
[2019-03-13] MEDS: ZOLPIDEM 10 MG TAB PO PRN (20:30)
[2019-03-13] MEDS: INSULIN LANTUS 100 UNITS/ML 10 ML VIAL SUBQ SCH (20:35)
--- NOTE | 2019-03-13 20:35 | NUR ---
SCHEDULED MEDICATION LANTUS GIVEN AND TOLERATED WELL. PT REQUESTED AMBIEN FOR SLEEP- GIVEN AND TOLERATED WELL. NO S/S OF RESPIRATORY DISTRESS OR DISCOMFORT NOTED AT THIS TIME. WILL CONTINUE TO MONITOR.
--- NOTE | 2019-03-13 22:36 | NUR ---
PT C/O PAIN 06/23- MEDICATED WITH NORCO AND TOLERATED WELL. NO S/S OF RESPIRATORY DISTRESS OR DISCOMFORT NOTED AT THIS TIME. WILL CONTINUE TO MONITOR.
--- NOTE | 2019-03-13 23:03 | NUR ---
DR. LEUNG IN TO SEE PT.
[2019-03-14] VITALS: BP 129/78
--- NOTE | 2019-03-14 | NUR ---
VITALS TAKEN. TOLERATED WELL. NO COMPLAINTS AT THIS TIME. BED IN LOWEST POSITION. CALL LIGHT WITHIN REACH. WILL CONTINUE TO MONITOR.
--- NOTE | 2019-03-14 00:34 | NUR ---
PT BP 163/91 PULSE 81. ADMINISTERED PRN BP MED. EDUCATED ON SIDE EFFECTS. VERBALIZED UNDERSTANDING. TOLERATED WELL. WILL REASSESS AND CONTINUE TO MONITOR. Addendum: 03/15/19 at 0225 by Lauren Soto RN WRONG DATE. CORRECT DATE IS 03/15/19 0034.
--- NOTE | 2019-03-14 02:00 | NUR ---
PT SLEEPING IN BED. NO S/S OF RESPIRATORY DISTRESS OR DISCOMFORT NOTED AT THIS TIME. WILL CONTINUE TO MONITOR.
[2019-03-14] MEDS: HYDROcodone/APAP 5/325 MG 1 TAB TAB PO PRN ×2 (02:57→09:23)
--- NOTE | 2019-03-14 02:57 | NUR ---
PATIENT COMPLAINED OF 8/10 HAND PAIN. PRN PAIN MED ADMINISTERED PER ORDER. WILL CONTINUE TO MONITOR
--- NOTE | 2019-03-14 04:55 | NUR ---
PT SLEEPING COMFORTABLY IN BED. EASILY AROUSABLE. NO SIGNS OF RESP DISTRESS. BED IN LOW POSITION. CALL LIGHT WITHIN REACH. WILL CONTINUE TO MONITOR.
[2019-03-14] MEDS: VANCOMYCIN 1,500 MG in NACL 0.9% 500 ML IV SCH ×2 (05:36→17:54)
[2019-03-14] MEDS ORDERED: VANCOMYCIN 1,000 MG VIAL ONE (05:40)
--- NOTE | 2019-03-14 05:57 | NUR ---
ADMINISTERED MEDS PER ORDER. EDUCATED ON SIDE EFFECTS. VERBALIZED UNDERSTANDING. FLUSHED IV. TOLERATED WELL. NO COMPLAINTS AT THIS TIME. NO SIGNS OF RESP DISTRESS. WILL CONTINUE TO MONITOR.
[2019-03-14] MEDS: MORPHINE SULFATE 4 MG/ML SYR IVP PRN ×4 (06:24→20:02)
[2019-03-14] MEDS: NACL 0.9% 1,000 ML IV SCH ×2 (07:01→10:13)
[2019-03-14] MEDS: BLOOD GLUCOSE MONITORING 1 DEV DEV FS SCH ×4 (07:01→21:00)
[2019-03-14] MEDS: INSULIN LISPRO 100 UNITS/ML VIAL SUBQ SCH ×3 (07:04→17:53)
--- NOTE | 2019-03-14 07:04 | NUR ---
SCHEDULED MEDICATION HUMALOG GIVEN AND TOLERATED WELL. NO S/S OF RESPIRATORY DISTRESS OR DISCOMFORT NOTED AT THIS TIME. WILL CONTINUE TO MONITOR.
--- NOTE | 2019-03-14 07:15 | NUR ---
ENDORSED PT TO DAYSHIFT RN. PT IN STABLE CONDITION. BED IN LOWEST POSITION. CALL LIGHT WITHIN REACH.
--- NOTE | 2019-03-14 07:16 | NUR ---
RECEIVED REPORT FROM FIELD TRAINING AGENT NURSE. S/P I&D, DRESSING DRY AND INTACT. PATIENT IS AWAKE AND ALERT. RESPIRATIONS ARE EVEN AND UNLABORED ON ROOM AIR. IV IS INTACT, PATENT, AND INFUSING IVF. DENIES PAIN AT THIS TIME. PLAN OF CARE WAS REVIEWED WITH PATIENT. PATIENT VERBALIZED UNDERSTANDING. SAFETY MEASURES IN PLACE, BED IS IN THE LOWEST POSITION, SIDERAILS X2, CALL LIGHT IS WITHIN REACH. WILL CONTINUE TO MONITOR.
[2019-03-14 08:00] VITALS: BP 151/85
[2019-03-14 08:19] LABS: BASOPHILS # (AUTO) 0.1 K/uL (0.00-0.22); BASOPHILS % (AUTO) 0.7 % (0.0-2.0); EOSINOPHILS # (AUTO) 0.3 K/uL (0-0.4); EOSINOPHILS % (AUTO) 2.6 % (0.0-4.0); HEMATOCRIT 36.7 % (36-52); HEMOGLOBIN 12.7 g/dL (12.0-18.0); LYMPHOCYTES # (AUTO) 2.4 K/uL (2.0-11.5); LYMPHOCYTES % (AUTO) 22.2 % (20.5-51.1); MEAN CORPUSCULAR HEMOGLOBIN 28 pg (27-31); MEAN CORPUSCULAR HGB CONC 35 g/dL (33-37); MEAN CORPUSCULAR VOLUME 82.2 fL (80-94); MONOCYTES # (AUTO) 1.1 K/uL (0.8-1.0); NEUTROPHILS # (AUTO) 6.9 K/uL (1.8-7.7); NEUTROPHILS % (AUTO) 64.5 % (42.2-75.2); PLATELET COUNT (AUTO) 341 K/uL (140-450); RED BLOOD CELL COUNT(AUTO) 4.46 MIL/uL (4.20-6.10); RED CELL DISTRIBUTION WIDTH 12.9 % (11.6-13.7); WHITE BLOOD COUNT (AUTO) 10.7 K/uL (4.8-10.8)
[2019-03-14 08:32] LABS: ANION GAP 11.8 (8-16); CARBON DIOXIDE 26.1 mmol/L (21-32); CREATININE 1.1 mg/dL (0.7-1.3); POTASSIUM 3.9 mmol/L (3.5-5.1)
--- NOTE | 2019-03-14 08:38 | NUR ---
CALLED SHAWNA AT [facility] FOR FOLLOW UP REQUEST FOR A MED SURGE BED FOR HIGHER LEVEL OF CARE, PER SHAWNA SHE IS STILL LOOKING FOR THE HAND SPECIALIST, AND SHE WILL CALL BACK.
[2019-03-14] MEDS: amLODIPine 5 MG TAB PO SCH (09:12)
[2019-03-14] MEDS: LISINOPRIL 20 MG TAB PO SCH (09:12)
--- NOTE | 2019-03-14 09:24 | NUR ---
ADMINISTERED SCHEDULED MEDICATIONS. C/O OF PAIN AT SITE, DX: LEFT HAND CELLULITIS. GAVE NORCO. WILL CONTINUE TO MONITOR.
--- NOTE | 2019-03-14 10:33 | NUR ---
PATIENT C/O OF PAIN AT LEFT HAND. ADMINISTERED PRN PAIN MEDICATED. WILL CONTINUE TO MONITOR.
--- NOTE | 2019-03-14 10:40 | NUR ---
DR. CONNOR AT BEDSIDE REVIEWING PLAN OF CARE WITH PATIENT AND EVALUATED LEFT HAND S/P I&D 03/13/19. MORPHINE ALREADY GIVEN. DRESSING CHANGED AT THIS TIME PER MD ORDERS. WILL CONTINUE TO MONITOR.
--- NOTE | 2019-03-14 10:41 | NUR ---
PATIENT TOLERATED LEFT HAND DRESSING CHANGE WELL.
[2019-03-14] MEDS ORDERED: VANCOMYCIN PER PHARMACY MC PRN (11:20)
--- NOTE | 2019-03-14 11:37 | NUR ---
I RECEIVED A CALL FROM [facility] ,SPOKE WITH SHAWNA [phone] ,THE HIGHER LEVEL REQUEST HAS BEEN DENIED BECAUSE OF THE LOCATION ,THEY DON'T TAKE [facility] , NOTIFIED DR ASHLEY AND LEFT A MESSAGE FOR DR HAYWOOD.
--- NOTE | 2019-03-14 12:55 | NUR ---
PATIENT IS RESTING IN BED. NO C/O OF PAIN AT THIS TIME. WILL CONTINUE TO MONITOR.
--- NOTE | 2019-03-14 14:05 | NUR ---
PATIENT REQUESTING THAT TO TALK TO HIS MOM, I PROVIDE MY NUMBER AND HIS MOM CALLED ME FROM [place] AND UPDATED PT CONDITION AND THE PROGRESS OF TRANSFERRING TO THE HIGHER LEVEL OF CARE , [facility] AND [facility] UNABLE TO TAKE PT , WAS RECOMMENDED TO F/U OUT PATIENT. BUT WE STILL LOOK FOR ALL CONTRACTED HOSPITAL. PATIENT AND HIS MOM VERBALIZED UNDERSTANDING AND WILL F/U TOMORROW.
--- NOTE | 2019-03-14 15:12 | NUR ---
PATIENT IS RESTING IN BED. DENIES ANY PAIN AT THIS TIME. WILL CONTINUE TO MONITOR.
[2019-03-14 16:00] VITALS: BP 166/99
--- NOTE | 2019-03-14 18:03 | NUR ---
ADMINISTERED SCHEDULED MEDICATIONS. PATIENT DENIES ANY PAIN AT THIS TIME. WILL CONTINUE TO MONITOR.
--- NOTE | 2019-03-14 19:14 | NUR ---
GAVE ENDORSEMENT TO INCIDENT COMMANDER FOR CONTINUITY OF CARE. PATIENT IS STABLE.
--- NOTE | 2019-03-14 19:15 | NUR ---
RECEIVED BEDSIDE REPORT FROM HONEY RN. PT RESTING IN BED, AOX4, ON ROOM AIR WITH RIGHT AC #22G RUNNING NS @120ML/HR. DISCUSSED PLAN OF CARE AND PT VERBALIZED UNDERSTANDING. NO SIGNS OF RESP DISTRESS OR DISCOMFORT NOTED AT THIS TIME. LEFT HAND BANDAGED. CLEAN DRY INTACT. BED IN LOWEST POSITION, BED BREAKS ON, BOTH SIDE RAILS UP. BEDSIDE TABLE AND CALL LIGHT ARE WITHIN REACH. WILL CONTINUE TO MONITOR.
--- NOTE | 2019-03-14 20:02 | NUR ---
TOOK VITALS. TOLERATED WELL. ADMINISTERED PAIN MED TO PT. 10/10 ADULT PAIN SCALE. EDUCATED ON SIDE EFFECTS. VERBALIZED UNDERSTANDING. TOLERATED WELL. WILL CONTINUE TO MONITOR.
[2019-03-14] MEDS: INSULIN LANTUS 100 UNITS/ML 10 ML VIAL SUBQ SCH (22:17)
--- NOTE | 2019-03-14 22:20 | NUR ---
DR. LEUNG CAME AND SEEN PT. NO NEW ORDER NOTED.
[2019-03-14] MEDS: ZOLPIDEM 10 MG TAB PO PRN (22:21)
--- NOTE | 2019-03-14 23:36 | NUR ---
PT SLEEPING COMFORTABLY IN BED. EASILY AROUSABLE. NO COMPLAINTS AT THIS TIME. NO SIGNS OF RESP DISTRESS. BED IN LOWEST POSITION. CALL LIGHT WITHIN REACH. WILL CONTINUE TO MONITOR.
[2019-03-15] VITALS: BP 163/91
[2019-03-15] MEDS: cloNIDine 0.1 MG TAB PO PRN (00:34)
--- NOTE | 2019-03-15 00:34 | NUR ---
PT BP 163/91 PULSE 81. ADMINISTERED PRN BP MED. EDUCATED ON SIDE EFFECTS. VERBALIZED UNDERSTANDING. TOLERATED WELL. WILL REASSESS AND CONTINUE TO MONITOR.
[2019-03-15 02:04] VITALS: BP 117/89
--- NOTE | 2019-03-15 02:04 | NUR ---
REASSESSED BP. 117/89. PULSE 82. PT IN STABLE CONDITION. NO SIGNS OF RESP DISTRESS. WILL CONTINUE TO MONITOR.
--- NOTE | 2019-03-15 04:00 | NUR ---
PT SLEEPING IN BED. NO SIGNS OF RESP DISTRESS. BED IN LOW POSITION. CALL LIGHT WITHIN REACH. WILL CONTINUE TO MONITOR.
--- NOTE | 2019-03-15 05:13 | NUR ---
PT REMAINS SLEEPING IN BED. LOW POSITION. CALL LIGHT WITHIN REACH. WILL CONTINUE TO MONITOR. NO SIGNS OF DISTRESS OR DISCOMFORT.
[2019-03-15] MEDS: VANCOMYCIN 1,500 MG in NACL 0.9% 500 ML IV SCH (05:26)
[2019-03-15] MEDS: MORPHINE SULFATE 4 MG/ML SYR IVP PRN ×2 (06:01→11:38)
--- NOTE | 2019-03-15 06:01 | NUR ---
C/O 10/10 ADULT PAIN SCALE. ADMINISTERED MORPHINE 4MG. EDUCATED ON SIDE EFFECTS. VERBALIZE UNDERSTANDING. TOLERATED WELL.
[2019-03-15] MEDS: BLOOD GLUCOSE MONITORING 1 DEV DEV FS SCH ×2 (06:17→11:52)
[2019-03-15] MEDS: INSULIN LISPRO SLIDING SCALE 100 UNITS/ML VIAL SUBQ PRN (06:24)
[2019-03-15] MEDS: INSULIN LISPRO 100 UNITS/ML VIAL SUBQ SCH ×2 (06:25→12:13)
--- NOTE | 2019-03-15 06:25 | NUR ---
BLOOD SUGAR THIS AM 160. INSULIN COVERAGE AND SCHEDULED AC HUMALOG GIVEN SUB Q PER PT REQUEST. Addendum: 03/15/19 at 0650 by Analia Kruse RN BLOOD SUGAR IS 167 NOT 160. CAREGIVER MISTAKE.
--- NOTE | 2019-03-15 07:15 | NUR ---
ENDORSED PT TO DAYSHIFT RN IN STABLE CONDITION FOR CONTINUITY OF CARE. BED IN LOW POSITION. CALL LIGHT WITHIN REACH.
--- NOTE | 2019-03-15 07:16 | NUR ---
RECEIVED REPORT FROM FASTENER TECHNOLOGIST NURSE. PATIENT SITTING IN BED ON HIS PHONE. NO DISTRESS NOTED. PAIN WITHIN TOLERABLE AT THIS TIME. AAOX4, CALM, COOPERATIVE, SKIN COLOR APPROPRIATE TO ETHNICITY, WARM TO TOUCH. HAS LEFT HAND WOUND S/P I&D ON 03/13/19, DRESSING IS DRY AND INTACT. IV SITE INTACT, PATENT, AND INFUSING IVF PER MD ORDERS. RESPIRATIONS EVEN, UNLABORED, ON ROOM AIR. REVIEWED PLAN OF CARE WITH PATIENT. PATIENT VERBALIZED UNDERSTANDING. SAFETY MEASURES IN PLACE, CALL LIGHT WITHIN REACH. WILL CONTINUE TO MONITOR.
[2019-03-15 08:00] VITALS: BP 143/87
--- NOTE | 2019-03-15 08:00 | NUR ---
CALLED [facility] [phone] SPOKE WITH ZANA STOREY REGARDING THE TRANSFER FOR HIGHER LEVER SHE REQUESTING ALL THE PAPER WORK TO BE FAXED TO [phone] AND WILL ANGEL BACK . I CALLED [facility] AND FAXED ALL THE PAPER WORK AT THIS TIME.
[2019-03-15 08:11] LABS: BASOPHILS # (AUTO) 0.1 K/uL (0.00-0.22); BASOPHILS % (AUTO) 0.9 % (0.0-2.0); EOSINOPHILS # (AUTO) 0.3 K/uL (0-0.4); EOSINOPHILS % (AUTO) 2.5 % (0.0-4.0); HEMATOCRIT 35.3 % (36-52); HEMOGLOBIN 12.2 g/dL (12.0-18.0); LYMPHOCYTES # (AUTO) 2.3 K/uL (2.0-11.5); LYMPHOCYTES % (AUTO) 21.8 % (20.5-51.1); MEAN CORPUSCULAR HEMOGLOBIN 29 pg (27-31); MEAN CORPUSCULAR HGB CONC 35 g/dL (33-37); MEAN CORPUSCULAR VOLUME 82.3 fL (80-94); MONOCYTES # (AUTO) 1.1 K/uL (0.8-1.0); MONOCYTES % (AUTO) 10.7 % (1.7-9.3); NEUTROPHILS # (AUTO) 6.9 K/uL (1.8-7.7); NEUTROPHILS % (AUTO) 64.1 % (42.2-75.2); PLATELET COUNT (AUTO) 358 K/uL (140-450); RED BLOOD CELL COUNT(AUTO) 4.29 MIL/uL (4.20-6.10); RED CELL DISTRIBUTION WIDTH 12.9 % (11.6-13.7); WHITE BLOOD COUNT (AUTO) 10.7 K/uL (4.8-10.8)
[2019-03-15 08:21] LABS: ANION GAP 13.9 (8-16); CARBON DIOXIDE 23.4 mmol/L (21-32); CREATININE 1.2 mg/dL (0.7-1.3); POTASSIUM 4.3 mmol/L (3.5-5.1)
--- NOTE | 2019-03-15 09:00 | NUR ---
CALLED [facility] [phone] SPOKE WITH JORDAN EXPLAINED ALL PT'S CONDITION AND RECOMMENDATION, MERVIN LE ONCE PT HAS AUTHORIZATION THE EARLIEST APPOINTMENT APRIL 05, AT [address] ABDULLAHI PHONE # [phone] THE [address] IS [address] [place] [id number] THE CHECKING TIME IS 9:45 . MERVIN MERA WILL CHECK IF ANY EARLIER MACY BEFORE APRIL 05 AND WILL CALL BACK
[2019-03-15] MEDS: LISINOPRIL 20 MG TAB PO SCH (09:24)
[2019-03-15] MEDS: amLODIPine 5 MG TAB PO SCH (09:24)
--- NOTE | 2019-03-15 09:26 | NUR ---
PATIENT SITTING IN BED TALKING ON HIS PHONE. NO DISTRESS NOTED. PAIN WITHIN TOLERABLE. SCHEDULED MEDICATIONS DUE GIVEN. WILL CONTINUE TO MONITOR.
--- NOTE | 2019-03-15 09:30 | NUR ---
DR. SINGH AT BEDSIDE REVIEWING PLAN OF CARE WITH PATIENT. PATIENT VERBALIZED THAT HE PROBABLY MIGHT WANT TO LEAVE AMA TO GO TO HIGHER LEVEL OF CARE TO DR. SINGH. DR. SINGH ADVISED AGAINST LEAVING AMA DUE TO CONDITION OF LEFT HAND AND THAT CONTINUED IV ANTIBIOTICS WERE NEEDED. PATIENT VERBALIZED UNDERSTANDING OF RISKS LEAVING AMA EXPLAINED BY DR. SINGH. PATIENT SAYS HE WILL THINK OVER IT ABOUT LEAVING AMA AT THIS TIME. WILL CONTINUE TO MONITOR.
--- NOTE | 2019-03-15 10:00 | NUR ---
RALEIGH FROM [facility] , THE CASE REVIEWED BY THE ORTHO SURGEON AND THE CASE DENIED BECAUSE THEY DON'T HAVE HAND SPECIALIST.
--- NOTE | 2019-03-15 11:50 | NUR ---
PATIENT SITTING IN BED WITH COMPLAINTS OF LEFT HAND PAIN S/P I&D. MORPHINE GIVEN. OTHER SCHEDULED MEDICATIONS DUE GIVEN. BS CHECKED AT 54, PATIENT ASYMPTOMATIC OF HYPOGLYCEMIA. GAVE PATIENT APPLE JUICE AND PATIENT EATING AN APPLE AT THIS TIME. PER PATIENT, HE WANTS SCHEDULED 10 UNITS HUMALOG TO BE GIVEN BEFORE LUNCH TRAY COMES TO PREVENT BLOOD GLUCOSE FROM SPIKING. WILL ADMINISTER SCHEDULED HUMALOG INSULIN WHEN LUNCH TRAY ARRIVES.
--- NOTE | 2019-03-15 13:14 | NUR ---
PATIENT TO LEAVE AMA. FORMS SIGNED. IV SITE REMOVED WITH MINIMAL BLOOD AND LUMEN COMPLETELY INTACT. ID BANDS REMOVED.
--- NOTE | 2019-03-15 13:15 | NUR ---
PATIENT WANTS TO LEAVE AMA EVEN THOUGH DR. SINGH TALKED TO HIM REGARDING RISKS ASSOCIATED WITH LEAVING AMA EARLIER TODAY. PATIENT WANTS TO LEAVE AMA TO GO TO A DIFFERENT HOSPITAL FOR HIGHER LEVEL OF CARE PER PATIENT REPORTS. PATIENT HAS FRIEND AT BEDSIDE TO TAKE HIM TO ANOTHER HOSPITAL. NOTIFIED DR. SINGH ABOUT PATIENT LEFT AMA. DR. SINGH VERBALIZED UNDERSTANDING. ESCORTED PATIENT DOWN TO LOBBY VIA [facility]ATION. PATIENT LEFT AMA AT THIS TIME IN STABLE CONDITION WITH FRIEND.
--- NOTE | 2019-03-15 13:16 | NUR ---
PATIENT WANTS TO LEAVE AMA AISHWARYA. REFUSED TO HAVE WOUND PICTURE TAKEN FOR DISCHARGE AT THIS TIME.
--- NOTE | 2019-03-15 14:42 | NUR ---
CALLED PATIENT ON CELL PHONE [phone] AND LEFT A MESSAGE FOR HIS UPCOMING APPOINTMENT APRIL 05 AT 1000AM AND SPOKE WITH HIS FRIEND (PERSON TO NOTIFY) PATRICK CASILLAS NOTIFIED HER THAT TO F/U WITH HIS APPOINTMENT AND TO COME AND RESPIRATORY EQUIPMENT ASSISTANT THE AUTHORIZATION AT ANY TIME.
== END 2019-03-15 13:15 | disposition left against medical advice (07) | DRG 710 ==
LOC: MED 10:41 → MTU 13:37
PROVIDERS: ADMIT Internal Medicine Pulmonary Disease; ATTEND Internal Medicine Pulmonary Disease
PROC: 0J8K0ZZ Division of Left Hand Subcutaneous Tissue and Fascia, Open Approach (ICD-10-PCS; 2019-03-11)
PROC: 0J9K0ZZ Drainage of Left Hand Subcutaneous Tissue and Fascia, Open Approach (ICD-10-PCS; principal; 2019-03-11 20:30)
DX: A41.9 Sepsis, unspecified organism (principal); E11.65 Type 2 diabetes mellitus with hyperglycemia; L03.114 Cellulitis of left upper limb; I10 Essential (primary) hypertension; L02.512 Cutaneous abscess of left hand; M60.9 Myositis, unspecified; Z53.21 Procedure and treatment not carried out due to patient leaving prior to being seen by health care provider; M72.9 Fibroblastic disorder, unspecified; Z79.4 Long term (current) use of insulin; Z79.899 Other long term (current) drug therapy
CPT/HCPCS: 36415; 36600; 71045; 73130; 73200; 80048; 80053; 80202; 81001; 82009; 82550; 82803; 82948; 83036; 83605; 83735; 85025; 87040; 87070; 87075; 87081; 87086; 87205; 96361; 96365; 99285; J0696; J1100; J1170; J1815; J1885; J2001; J2175; J2250; J2270; J2405; J2543; J2704; J3010; J3370; J3490; J7030; J7060; Q0092